=== PATIENT | female | born 1960 | race American Indian/Alaskan Native ===

== ENCOUNTER 2017-04-14 07:12 | Inpatient (IN) | payer MEDICARE, MEDICAID ==
[2017-03-18 09:55] VITALS: BMI 38.7
[2017-04-14] MEDS ORDERED: Bupivacaine Liposomal Inj 20 ml INFIL ONE (08:06)
--- NOTE | 2017-04-14 08:10 | CP.PCM.HP ---
History of Present Illness - History of Present Illness History of Present Illness: 56F with left knee TKR approx 3 years ago with continued pain and failed TKR for revision TKR. Patient with hx DVT BLE many years ago, before open heart surgery. Has prosthetic mitral valve and AICD. Medical clearance and cardio clearance Dr. Gonzalez on chart. Labs on chart, reviewed. No recent cough or cold, had recent UTI per lumber straightener, treated with antibiotics. No dysuria/frequency, PAT u/a neg Present on Admission - Present on Admission Any Indicators Present on Admission: Yes History of DVT/PE: Yes Review of Systems - Review of Systems All systems: reviewed and no additional remarkable complaints except - Musculoskeletal Musculoskeletal: As Per HPI Past Patient History - Past Medical History & Family History Past Medical History?: Yes - Past Social History Smoking Status: Never Smoked - CARDIAC Hx Cardiac Disorders: Yes (MVR 2010) Hx Cardia Arrhythmia: Yes Hx Congestive Heart Failure: Yes (systolic cardiomyopathy with AICD/ppm in 2012) Hx Heart Attack: Yes Hx Hypercholesterolemia: Yes Hx Hypertension: Yes Hx Internal Defibrillator: Yes Hx Mitral Valve Prolapse: Yes Hx Pacemaker: Yes - PULMONARY Hx Respiratory Disorders: Yes Hx Asthma: Yes - NEUROLOGICAL Hx Neurological Disorder: No - HEENT Hx HEENT Problems: No - RENAL Hx Chronic Kidney Disease: No - ENDOCRINE/METABOLIC Hx Endocrine Disorders: No - HEMATOLOGICAL/ONCOLOGICAL Hx Blood Disorders: No - INTEGUMENTARY Hx Dermatological Problems: Yes Hx Psoriasis: Yes - MUSCULOSKELETAL/RHEUMATOLOGICAL Hx Musculoskeletal Disorders: Yes Hx Arthritis: Yes Hx Back Pain: Yes Hx Falls: No Hx Osteoporosis: Yes - GASTROINTESTINAL Hx Gastrointestinal Disorders: Yes (CONSTIPATION) Hx Gastritis: Yes - GENITOURINARY/GYNECOLOGICAL Hx Genitourinary Disorders: No - PSYCHIATRIC Hx Psychophysiologic Disorder: No Hx Substance Use: No - SURGICAL HISTORY Hx Surgeries: Yes Hx Arthroscopy: Yes Hx Cardiac Catheterization: Yes Hx Cholecystectomy: Yes Hx Herniorrhaphy: Yes Hx Hysterectomy: Yes Hx Joint Replacement: Yes (BILAT) Hx Orthopedic Surgery: Yes Hx Valve Replacement: Yes (juana pig valve) - ANESTHESIA Hx Anesthesia: Yes Hx Anesthesia Reactions: No Hx Malignant Hyperthermia: No Has any member of the family had a problem w/ anesthesia?: No Meds Allergies/Adverse Reactions: Allergies Allergy/AdvReac Type Severity Reaction Status Date / Time ibuprofen Allergy Intermediate URTICARIA Verified 03/18/17 09:54 latex Allergy Intermediate URTICARIA Verified 03/18/17 09:54 shellfish derived Allergy Intermediate URTICARIA Verified 03/18/17 09:55 Physical Exam - Constitutional Appears: Well, No Acute Distress - Back Exam Additional comments: LLE: +ROM ankle/toes, sensation intact, calves soft NT neg homans, incision well healed, skin intact, no erythema or joint effusion - Neurological Exam Neurological exam: Alert, Oriented x3 - Psychiatric Exam Psychiatric exam: Normal Affect, Normal Mood - Skin Skin Exam: Dry, Intact, Normal Color, Warm Additional comments: no clinical suspicion of infection Results - Labs Result Diagrams: 04/15/17 07:18 04/15/17 07:18 Assessment & Plan (1) Failed total knee replacement Assessment and Plan: NPO for revision TKR Status: Acute (2) HTN (hypertension) Assessment and Plan: cont home meds, cardiology consult for post op mgmt Status: Chronic Priority: Medium
[2017-04-14] MEDS ORDERED: ceFAZolin IV 2 gm in Dextrose 1 GM/50 ML BAG IVPB ONE (10:17)
[2017-04-14] MEDS ORDERED: Lactated Ringer's 1,000 ML IV ONE ×2 (10:20→12:14)
[2017-04-14] MEDS ORDERED: Midazolam 2 MG/2 ML VIAL ONE (10:22)
[2017-04-14] MEDS ORDERED: Propofol 10 mg/ml Inj (20 ML) ONE (10:24)
[2017-04-14] MEDS ORDERED: Succinylcholine Chloride 20 mg/ml Syr (5 ml) IV ONE (10:24)
[2017-04-14] MEDS ORDERED: ceFAZolin IV 1 gm in Dextrose 1 GM/50 ML BAG IVPB ONE (10:40)
[2017-04-14] MEDS ORDERED: Vancomycin 1 g Inj ONE ×2 (10:41)
[2017-04-14] MEDS: Bacitracin 150,000 UNIT in Sodium Chloride 0.9% Irrig 3,000 ML IR SCH ×2 (11:55→12:45)
[2017-04-14] MEDS ORDERED: Neostigmine Methylsulfate 3mg/3ml Syringe IV ONE (13:18)
[2017-04-14] MEDS ORDERED: Fluticasone-Salmeterol 250-50mcg Diskus IH PRN (14:41)
--- NOTE | 2017-04-14 14:45 | PCM.SURG1 ---
Surgeon's Initial Post Op Note - Surgeon's Notes Surgeon: Galileo Santos MD Adventure Guide: Pietro Araya PA-C Type of Anesthesia: General Endo Anesthesia Administered By: Dr. Otto Pre-Operative Diagnosis: Left failed TKR Operative Findings: same. tourniquet@ 130 min @ 300mmHg Post-Operative Diagnosis: smae Operation Performed: Left revision total knee replacement Specimen/Specimens Removed: bone/implants Estimated Blood Loss: EBL {In ML}: 300 Blood Products Given: N/A Drains Used: Hemovac Post-Op Condition: Fair Date of Surgery/Procedure: 04/14/17 Time of Surgery/Procedure: 14:45
[2017-04-14] MEDS ORDERED: Dexamethasone 4 mg/1 ml IVP PRN (15:01)
--- NOTE | 2017-04-14 15:02 | OP ---
PROCEDURE DATE: 04/14/2017 PREOPERATIVE DIAGNOSIS: Failed left total knee replacement. POSTOPERATIVE DIAGNOSIS: Failed left total knee replacement. PROCEDURE: Revision left total knee replacement. SURGEON: Hayder Santos MD. OCCUPATIONAL SAFETY AND HEALTH MANAGER: Dr. Santos was assisted by Pallavi Araya and the third year medical student. Quiana was scrubbed and present throughout the case and helped in patient positioning, retraction throughou t the case, removal of the implants as well as wound closure. ANESTHESIA: General. COMPLICATIONS: None. ESTIMATED BLOOD LOSS: 300 mL. IMPLANT: A Biomet SSK total knee. INDICATIONS FOR PROCEDURE: This is a 56-year-old female who approximately 3 years ago underwent a le ft total knee replacement. Postoperatively, patient complained of chronic knee pain and instability. On clinical examination, the patient was noted to have a significant varus and valgus laxity consis tent with an incompetent MCL and LCL, global tenderness to palpation as well as a small effusion. On preoperative workup, including blood work as well as WBC ____ and bone scan was not consistent with any infection. Recommendations at that point were for a left revision total knee replacement. The r isks, benefits, and alternatives of the procedure were discussed with the patient including the possi bility of an infection, and informed consent was obtained. OPERATIVE PROCEDURE: After the surgical site was found and verified in preoperative holding area, th e patient was taken to the operating room and placed supine on the operating table. After administra tion of general anesthesia, patient received 3 grams of Ancef IV. A Anderson catheter was inserted. A tourniquet was placed about the left thigh. Care was taken to make sure all bony prominences and ner ves were well padded and protected. A Venodyne boot was placed on the nonoperative extremity and the left lower extremity was prepped and draped in usual sterile fashion. The tourniquet was inflated a t 300 mmHg and the previous incision was reincised. A medial parapatellar arthrotomy was performed, and at this point some fluid was noted in the knee joint and this was aspirated and sent for a stat G jerome stain. Culture swabs were also taken for aerobic, anaerobic, fungal and AFB. At this point, usi ng various osteotomes, the femoral and tibial components were removed. The patellar component was ev aluated; no gross wear was appreciated, no evidence of any loosening was appreciated, so the previous ly resurfaced patella was left intact. Next, care was taken to remove any excess cement in the knee joint. Next, the knee joint was pulse lavaged to remove any debris. At this point, our attention wa s directed to the femur. The medullary canal of the femur was reamed to allow for a 16 mm x 120 stem and the distal femoral cut block was placed and our distal femoral resection was performed. Similar ly, the 4-in-1 cut block was placed for a constrained component and then our anterior and posterior c uts were performed. Finally, the box cut was performed on the distal femur. Satisfied, our attentio n was directed to the tibia. Again, the medullary canal of the tibia was reamed sequentially to allo w for 14 x 120 stem. The intramedullary tibial cutting block was then pinned into place and our tibi al resection was performed. At this point, being careful to maintain the correct rotation, the medul anny canal of the proximal femur was reamed. At this point, with a trial tibia, trial femur, and a t rial bearing in place, the knee was taken through a range of motion and it was noted to be stable thr oughout its range of motion and well balanced. The trial components were removed and the knee joint was once again pulse lavaged with antibiotic saline solution. Please note that intraoperative frozen sections were done, first from the trochlea as well as from underneath the femoral component. The f rozen section, as per the pathologist, showed no WBCs or organisms per high-power field. Gram stain showed no organisms and 2-7 WBCs in the white count. Satisfied that these results were not consisten t with infection, the procedure proceeded. Once the knee joint had been pulse lavaged, the actual ti bial and femoral components were cemented into place. Care was taken to remove any excess cement. O nce the cement had hardened, the knee joint was inspected for any debris and pulse lavaged. At this p oint, the actual bearing was then inserted and locked into place with a cross pin. The tourniquet wa s deflated and any obvious bleeding was cauterized. A medium Hemovac drain was inserted and our arth rotomy was closed using #1 Vicryl suture. The subcutaneous tissue was closed using 0 Vicryl and 2-0 Vicryl suture, and the skin was closed using mecca. Sterile dressing was applied. A wound VAC was applied and a dressing was placed. The patient was awakened and taken to recovery room in stable an d satisfactory condition. Hayder Santos MD cc: [id number] TT: 04/14/2017 15:01:57 sudhir
[2017-04-14 15:15] LABS: HEMATOCRIT 33.7 % (34.0-47.0)
[2017-04-14] MEDS: HYDROmorphone 0.5 mg/0.5 ml ISec IVP PRN ×3 (15:22→20:48)
--- NOTE | 2017-04-14 15:51 | RAD ---
Indication: Status post revision TKR Comparison: None available Two views, left knee Findings: The patient is status post left knee total arthroplasty. Alignment appears satisfactory. Soft tissue swelling, suprapatellar joint effusion, subcutaneous emphysema, drainage catheter, and surgical mecca compatible with recent postoperative history Impression: Status post left arthroplasty as above.
[2017-04-14] MEDS ORDERED: Bupivacaine HCl 0.25% PF (10 ml) Inj ONE (16:26)
[2017-04-14] MEDS ORDERED: Bupivacaine 0.5% Inj(30mL) ONE (16:27)
--- NOTE | 2017-04-14 18:52 | CP.PCM.CON ---
History of Present Illness - History of Present Illness History of Present Illness: I was asked to see patient by Dr. Santos. Patient is a 56 year old female with a history of valvular cardiomyopathy, s/p MV repair, PPM, HTN who is s/p L total knee replacement. Patient needed revision of a previous knee surgery. The patient denies current chest pain or dyspnea Review of Systems - Constitutional Constitutional: absent: As Per HPI, Anorexia, Chills, Daytime Sleepiness, Excessive Sweating, Fatigue, Fever, Frequent Falls, Headache, Increased Appetite , Lethargy, Malaise, Night Sweats, Snoring, Sleep Apnea, Weight Gain, Weight Loss, Weakness, Other - EENT Eyes: absent: As Per HPI, Blind Spots, Blurred Vision, Change in Vision, Decreased Night Vision, Diplopia, Discharge, Dry Eye, Exophthalmos, Floaters, Irritation, Itchy Eyes, Loss of Peripheral Vision, Pain, Photophobia, Requires Corrective Lenses, Sees Flashes, Spots in Vision, Tunnel Vision, Other Visual Disturbances, Loss of Vision, Other Ears: absent: As Per HPI, Decreased Hearing, Ear Discharge, Ear Pain, Tinnitus, Abnormal Hearing, Disequilibrium, Dizziness, Other Nose/Mouth/Throat: absent: As Per HPI, Epistaxis, Nasal Congestion, Nasal Discharge, Nasal Obstruction, Nasal Trauma, Nose Pain, Post Nasal Drip, Sinus Pain, Sinus Pressure, Bleeding Gums, Change in Voice, Dental Pain, Dry Mouth, Dysphagia, Halitosis, Hoarsness, Lip Swelling, Mouth Lesions, Mouth Pain, Odynophagia, Sore Throat, Throat Swelling, Tongue Swelling, Facial Pain, Neck Pain, Neck Mass, Other - Cardiovascular Cardiovascular: absent: As Per HPI, Acrocyanosis, Chest Pain, Chest Pain at Rest , Chest Pain with Activity, Claudication, Diaphoresis, Dyspnea, Dyspnea on Exertion, Edema, Irregular Heart Rhythm, Pain Radiating to Arm/Neck/Jaw, Leg Edema, Leg Ulcers, Lightheadedness, Orthopnea, Palpitations, Paroxysmal Nocturnal Dyspnea, Pedal Edema, Radiating Pain, Rapid Heart Rate, Slow Heart Rate, Syncope, Other - Respiratory Respiratory: absent: As Per HPI, Cough, Dyspnea, Hemoptysis, Dyspnea on Exertion , Wheezing, Snoring, Stridor, Pain on Inspiration, Chest Congestion, Excessive Mucous Production, Change in Mucous Color, Pain with Coughing, Other - Gastrointestinal Gastrointestinal: absent: As Per HPI, Abdominal Pain, Belching, Bloating, Change in Bowel Habits, Change in Stool Character, Coffee Ground Emesis, Constipation, Cramping, Diarrhea, Dyspepsia, Dysphagia, Early Satiety, Excessive Flatus, Fecal Incontinence, Heartburn, Hematemesis, Hematochezia, Loose Stools, Melena, Nausea, Odynophagia, Temesmus, Vomiting, Other - Genitourinary Genitourinary: absent: As Per HPI, Change in Urinary Stream, Difficulty Urinating, Dysuria, Flank Pain, Hematuria, Pyuria, Nocturia, Urinary Incontinence, Urinary Frequency, Urinary Hesitance, Urinary Urgency, Voiding Freq/Small Amts, Freq UTI, Hx Renal/Bladder Calculi, Hx /Renal Surgery, Bladder Distension, Other - Musculoskeletal Additional comments: s/p knee replacement - Integumentary Integumentary: absent: As Per HPI, Acne, Alopecia, Bleeding Lesions, Change in Hair, Change in Nails, Change in Pigmentation, Changing Lesions, Dry Skin, Erythema, Furuncle, Hirsutism, Lesions, New Lesions, Non-Healing Lesions, Photosensitivity, Pruritus, Rash, Skin Pain, Skin Ulcer, Sores, Striae, Swelling , Unusual Bruising, Wounds, Jaundice, Other - Psychiatric Psychiatric: absent: As Per HPI, Abnormal Sleep Pattern, Anhedonia, Anxiety, Auditory Hallucinations, Behavioral Changes, Change in Appetite, Change in Libido, Confusion, Depression, Difficulty Concentrating, Hallucinations, Homicidal Ideation, Hopelessness, Irritability, Memory Loss, Mood Swings, Panic Attacks, Paranoia, Suicidal Ideation, Visual Hallucinations, Tactile Hallucinations, Other - Endocrine Endocrine: absent: As Per HPI, Change in Body Appearance, Change in Libido, Cold Intolorance, Deepening of Voice, Excessive Sweating, Fatigue, Flushing, Heat Intolorance, Increase in Ring/Shoe/Hat Size, Palpitations, Polydipsia, Polyphagia, Polyuria, Other - Hematologic/Lymphatic Hematologic: absent: As Per HPI, Easy Bleeding, Easy Bruising, Lymphadenopathy, Other Past Patient History - Past Medical History & Family History Past Medical History?: Yes - Past Social History Smoking Status: Never Smoked - CARDIAC Hx Cardiac Disorders: Yes (MVR 2010) Hx Cardia Arrhythmia: Yes Hx Congestive Heart Failure: Yes (systolic cardiomyopathy with AICD/ppm in 2013) Hx Heart Attack: Yes Hx Hypercholesterolemia: Yes Hx Hypertension: Yes Hx Internal Defibrillator: Yes Hx Mitral Valve Prolapse: Yes Hx Pacemaker: Yes - PULMONARY Hx Respiratory Disorders: Yes Hx Asthma: Yes - NEUROLOGICAL Hx Neurological Disorder: No - HEENT Hx HEENT Problems: No - RENAL Hx Chronic Kidney Disease: No - ENDOCRINE/METABOLIC Hx Endocrine Disorders: No - HEMATOLOGICAL/ONCOLOGICAL Hx Blood Disorders: No - INTEGUMENTARY Hx Dermatological Problems: Yes Hx Psoriasis: Yes - MUSCULOSKELETAL/RHEUMATOLOGICAL Hx Musculoskeletal Disorders: Yes Hx Arthritis: Yes Hx Back Pain: Yes Hx Falls: No Hx Osteoporosis: Yes - GASTROINTESTINAL Hx Gastrointestinal Disorders: Yes (CONSTIPATION) Hx Gastritis: Yes - GENITOURINARY/GYNECOLOGICAL Hx Genitourinary Disorders: No - PSYCHIATRIC Hx Psychophysiologic Disorder: No Hx Substance Use: No - SURGICAL HISTORY Hx Surgeries: Yes Hx Arthroscopy: Yes Hx Cardiac Catheterization: Yes Hx Cholecystectomy: Yes Hx Herniorrhaphy: Yes Hx Hysterectomy: Yes Hx Joint Replacement: Yes (BILAT) Hx Orthopedic Surgery: Yes Hx Valve Replacement: Yes (juana pig valve) - ANESTHESIA Hx Anesthesia: Yes Hx Anesthesia Reactions: No Hx Malignant Hyperthermia: No Has any member of the family had a problem w/ anesthesia?: No Meds Allergies/Adverse Reactions: Allergies Allergy/AdvReac Type Severity Reaction Status Date / Time ibuprofen Allergy Intermediate URTICARIA Verified 03/18/17 09:54 latex Allergy Intermediate URTICARIA Verified 03/18/17 09:54 shellfish derived Allergy Intermediate URTICARIA Verified 03/18/17 09:55 - Medications Medications: Current Medications Acetaminophen (Tylenol 325mg Tab) 650 mg PO Q4 PRN PRN Reason: Fever 101 degrees fahrenheit Aspirin (Ecotrin) 81 mg PO DAILY JT Docusate Sodium (Colace) 100 mg PO BID JT Ezetimibe (Zetia) 10 mg PO DAILY JT Enoxaparin Sodium (Lovenox) 30 mg SC Q12H [facility] Home Med (Fluticasone/Vilanterol [Breo Ellipta 200-25 Mcg Inh]) 1 each IH DAILY [facility] Home Med (Linaclotide [Linzess]) 290 mcg PO DAILY JT Hydromorphone HCl (Dilaudid) 0.5 mg IVP Q4H PRN PRN Reason: Pain, severe (8-10) Cefazolin Sodium/Dextrose (Ancef Iv 2 Gm Duplex) 2 gm in 100 mls @ 100 mls/hr IVPB Q8H JT Sodium Chloride (Sodium Chloride 0.9%) 1,000 mls @ 80 mls/hr IV .[id number] JT Losartan Potassium (Cozaar) 100 mg PO DAILY JT Nebivolol (Bystolic) 20 mg PO DAILY JT Ondansetron HCl (Zofran Inj) 4 mg IVP ONCE PRN PRN Reason: Nausea/Vomiting Oxycodone/Acetaminophen (Percocet 5/325 Mg Tab) 2 tab PO Q4H PRN PRN Reason: Pain, moderate (4-7) Stop: 04/17/17 14:36 Rosuvastatin Calcium (Crestor) 5 mg PO DAILY JT Fluticasone/Salmeterol (Advair Diskus 250/50) puff IH PRN PRN PRN Reason: Shortness of Breath Physical Exam - Constitutional Appears: Non-toxic - Head Exam Head Exam: NORMAL INSPECTION - Eye Exam Eye Exam: Normal appearance - ENT Exam ENT Exam: Mucous Membranes Moist - Neck Exam Neck exam: Positive for: Full Rom - Respiratory Exam Respiratory Exam: Decreased Breath Sounds - Cardiovascular Exam Cardiovascular Exam: REGULAR RHYTHM - GI/Abdominal Exam GI & Abdominal Exam: Normal Bowel Sounds - Extremities Exam Extremities exam: Positive for: pedal pulses present. Negative for: pedal edema Additional comments: L knee c/d/i - Back Exam Back exam: NORMAL INSPECTION - Neurological Exam Neurological exam: Alert, Oriented x3 - Psychiatric Exam Psychiatric exam: Normal Affect - Skin Skin Exam: Normal Color Results - Vital Signs Recent Vital Signs: Last Vital Signs Temp 97.4 F L 04/14/17 18:41 Pulse 53 L 04/14/17 18:41 Resp 20 04/14/17 18:41 BP 156/71 H 04/14/17 18:41 Pulse Ox 100 04/14/17 18:41 - Labs Result Diagrams: 04/14/17 15:00 Labs: Laboratory Results - last 24 hr 04/14/17 04/14/17 04/14/17 08:32 08:45 15:00 Hgb 11.0 Hct 33.7 L POC Glucose (mg/dL) 98 Blood Type O POSITIVE Antibody Screen Negative - EKG Data EKG Interpreted by: Myself Assessment & Plan (1) Mitral valve disorder Assessment and Plan: s/p MV repair. Most recent echocardiogram reveals intact repair. No current heart failure. recommend medical therapy Status: Acute (2) HTN (hypertension) Assessment and Plan: will adjust BP therapy Status: Chronic Priority: Medium
[2017-04-14] MEDS ORDERED: ceFAZolin IV 2 gm in Dextrose 2 GM/100 ML BAG IVPB SCH (19:00)
[2017-04-14] MEDS: Sodium Chloride 0.9% 1,000 ML IV SCH (20:45)
[2017-04-15] MEDS: HYDROmorphone 0.5 mg/0.5 ml ISec IVP PRN ×5 (01:27→20:47)
[2017-04-15] MEDS: Sodium Chloride 0.9% 1,000 ML IV SCH ×2 (03:15→17:47)
[2017-04-15 07:26] LABS: HEMATOCRIT 32.2 % (34.0-47.0); MEAN CELL VOLUME 88.9 fL (81.0-99.0); MEAN CORPUSCULAR HEMOGLOBIN 29.4 pg (27.0-31.0); MEAN PLATELET VOLUME 10.5 fL (7.2-11.7); RED CELL DISTRIBUTION WIDTH 14.4 % (11.5-14.5)
[2017-04-15 07:29] LABS: WHITE BLOOD COUNT 9.7 K/uL (4.8-10.8)
[2017-04-15 07:36] LABS: CHLORIDE 100 mmol/L (98-107); POTASSIUM 4.7 mmol/L (3.6-5.2); SODIUM 137 mmol/L (132-148)
[2017-04-15 07:38] LABS: GFR AFRICAN-AMERICAN > 60
[2017-04-15 07:39] LABS: BLOOD UREA NITROGEN 12 mg/dL (7-17); CALCIUM 8.4 mg/dl (8.6-10.4); CARBON DIOXIDE 29 mmol/L (22-30); GLUCOSE,RANDOM 134 mg/dL (65-105)
--- NOTE | 2017-04-15 08:20 | CP.PCM.PN ---
Subjective - Date & Time of Evaluation Date of Evaluation: 04/15/17 Time of Evaluation: 08:18 - Subjective Subjective: Pt awake, alert. Comfortable. VSS L knee: dressing clean and intact NVI distally Hemovac no drainage (off suction) Hg 10.6 POD 1 cont Hemovac suction on PT, CPM today Lovenox D/c planning Objective - Vital Signs/Intake and Output Vital Signs (last 24 hours): Temp Pulse Resp BP Pulse Ox 97.6 F 62 20 142/67 100 04/14/17 23:00 04/14/17 23:00 04/14/17 23:00 04/15/17 05:31 04/14/17 23:00 Intake and Output: 04/15/17 04/15/17 06:59 18:59 Intake Total 1640 Output Total 800 Balance 840 - Medications Medications: Current Medications Acetaminophen (Tylenol 325mg Tab) 650 mg PO Q4 PRN PRN Reason: Fever 101 degrees fahrenheit Aspirin (Ecotrin) 81 mg PO DAILY [facility] Docusate Sodium (Colace) 100 mg PO BID [facility] Last Admin: 04/14/17 18:00 Dose: Not Given Ezetimibe (Zetia) 10 mg PO DAILY [facility] Enoxaparin Sodium (Lovenox) 30 mg SC Q12H [facility] Home Med (Linaclotide [Linzess]) 290 mcg PO DAILY [facility] Hydromorphone HCl (Dilaudid) 0.5 mg IVP Q4H PRN PRN Reason: Pain, severe (8-10) Last Admin: 04/15/17 05:32 Dose: 0.5 mg Sodium Chloride (Sodium Chloride 0.9%) 1,000 mls @ 80 mls/hr IV .[id number] [facility] Last Admin: 04/15/17 03:15 Dose: Not Given Cefazolin Sodium 2 gm/ (Dextrose) 50 mls @ 100 mls/hr IVPB Q8H [facility] Last Admin: 04/15/17 03:31 Dose: 100 mls/hr Losartan Potassium (Cozaar) 100 mg PO DAILY [facility] Nebivolol (Bystolic) 20 mg PO DAILY [facility] Ondansetron HCl (Zofran Inj) 4 mg IVP ONCE PRN PRN Reason: Nausea/Vomiting Last Admin: 04/14/17 20:59 Dose: 4 mg Oxycodone/Acetaminophen (Percocet 5/325 Mg Tab) 2 tab PO Q4H PRN PRN Reason: Pain, moderate (4-7) Stop: 04/17/17 14:36 Rosuvastatin Calcium (Crestor) 5 mg PO DAILY JT - Labs Labs: 04/15/17 07:18 04/15/17 07:18
--- NOTE | 2017-04-15 09:38 | RAD ---
PROCEDURE: Radiographs of the left tibia and fibula. HISTORY: s/p TKR, long stem COMPARISON: None available. TECHNIQUE: Frontal and lateral views obtained. FINDINGS: BONES: Status post total knee replacement with a long tibial stem. No osseous fracture. Surgical drain. Anterior cutaneous mecca. JOINT SPACES: Unremarkable. OTHER FINDINGS: None. IMPRESSION: Status post left total knee replacement.
[2017-04-15] MEDS ORDERED: Home Med 1 UNIT (Linaclotide [Linzess] 290 MCG) PO SCH (10:00)
[2017-04-15] MEDS ORDERED: Home Med 1 UNIT (Fluticasone/Vilanterol [Breo Ellipta 200-25 Mcg Inh] 1 EACH) IH SCH (10:00)
[2017-04-15] MEDS: Enoxaparin 30 mg Syringe SC SCH (13:55)
[2017-04-15 16:30] VITALS: RESP 20
[2017-04-16] MEDS: HYDROmorphone 0.5 mg/0.5 ml ISec IVP PRN ×3 (00:36→10:21)
[2017-04-16] MEDS: Sodium Chloride 0.9% 1,000 ML IV SCH (00:38)
[2017-04-16] MEDS: Enoxaparin 30 mg Syringe SC SCH ×2 (02:19→14:03)
[2017-04-16 08:24] LABS: HEMATOCRIT 28.3 % (34.0-47.0); MEAN CELL VOLUME 89.4 fL (81.0-99.0); MEAN CORPUSCULAR HEMOGLOBIN 29.2 pg (27.0-31.0); MEAN CORPUSCULAR HGB CONC 32.7 g/dL (33.0-37.0); MEAN PLATELET VOLUME 10.5 fL (7.2-11.7); RED CELL DISTRIBUTION WIDTH 14.5 % (11.5-14.5); WHITE BLOOD COUNT 7.9 K/uL (4.8-10.8)
[2017-04-16 08:40] LABS: CHLORIDE 101 mmol/L (98-107); SODIUM 137 mmol/L (132-148)
[2017-04-16 08:41] LABS: POTASSIUM 4.2 mmol/L (3.6-5.2)
[2017-04-16 08:43] LABS: BLOOD UREA NITROGEN 10 mg/dL (7-17); CARBON DIOXIDE 28 mmol/L (22-30); GFR AFRICAN-AMERICAN > 60
[2017-04-16 08:44] LABS: GLUCOSE,RANDOM 109 mg/dL (65-105)
--- NOTE | 2017-04-16 08:55 | CP.PCM.PN ---
Subjective - Date & Time of Evaluation Date of Evaluation: 04/16/17 Time of Evaluation: 08:44 - Subjective Subjective: Patient states pain is well controlled. Denies CP/SOB/dizziness. Denies numbness /tingling/nausea/vomiting Objective - Vital Signs/Intake and Output Vital Signs (last 24 hours): Temp Pulse Resp BP Pulse Ox 99.1 F 83 20 109/72 96 04/16/17 08:33 04/16/17 08:33 04/16/17 08:33 04/16/17 08:33 04/16/17 08:33 Intake and Output: 04/16/17 04/16/17 06:59 18:59 Intake Total 880 Output Total 0 Balance 880 - Medications Medications: Current Medications Acetaminophen (Tylenol 325mg Tab) 650 mg PO Q4 PRN PRN Reason: Fever 101 degrees fahrenheit Aspirin (Ecotrin) 81 mg PO DAILY [facility] Last Admin: 04/15/17 09:53 Dose: 81 mg Docusate Sodium (Colace) 100 mg PO BID [facility] Last Admin: 04/15/17 17:46 Dose: 100 mg Ezetimibe (Zetia) 10 mg PO DAILY [facility] Last Admin: 04/15/17 09:53 Dose: 10 mg Enoxaparin Sodium (Lovenox) 30 mg SC Q12H [facility] Last Admin: 04/16/17 02:19 Dose: 30 mg Home Med (Linaclotide [Linzess]) 290 mcg PO DAILY [facility] Hydromorphone HCl (Dilaudid) 0.5 mg IVP Q4H PRN PRN Reason: Pain, severe (8-10) Last Admin: 04/16/17 04:46 Dose: 0.5 mg Sodium Chloride (Sodium Chloride 0.9%) 1,000 mls @ 80 mls/hr IV .[id number] [facility] Last Admin: 04/16/17 00:38 Dose: 80 mls/hr Cefazolin Sodium 2 gm/ (Dextrose) 50 mls @ 100 mls/hr IVPB Q8H [facility] Last Admin: 04/16/17 02:20 Dose: 100 mls/hr Losartan Potassium (Cozaar) 100 mg PO DAILY [facility] Last Admin: 04/15/17 09:53 Dose: 100 mg Nebivolol (Bystolic) 20 mg PO DAILY [facility] Last Admin: 04/15/17 09:53 Dose: 20 mg Ondansetron HCl (Zofran Inj) 4 mg IVP ONCE PRN PRN Reason: Nausea/Vomiting Last Admin: 04/14/17 20:59 Dose: 4 mg Oxycodone/Acetaminophen (Percocet 5/325 Mg Tab) 2 tab PO Q4H PRN PRN Reason: Pain, moderate (4-7) Stop: 04/17/17 14:36 Rosuvastatin Calcium (Crestor) 5 mg PO DAILY JT - Labs Labs: 04/16/17 08:16 04/16/17 08:16 - Constitutional Appears: Well, No Acute Distress - Extremities Exam Additional comments: +ROM ankle/toes, sensation intact, +DP/PT pulses, calves soft NT neg homans incision intact, small amount sang drainage, wil wound vac reapplied no erythema - Psychiatric Exam Psychiatric exam: Normal Affect, Normal Mood - Skin Skin Exam: Normal Color, Warm Assessment and Plan (1) Failed total knee replacement Assessment & Plan: POD#2 s/p revision TKR -cultures prelim neg -VTE proph -PT/OT -d/c planning to rehab -labs reviewed -d/w Dr. Santos, agrees with above Status: Acute (2) HTN (hypertension) Assessment & Plan: cont home meds Status: Chronic
[2017-04-16] MEDS: Oxycodone/Acetaminophen 5/325 mg Tab PO PRN ×2 (14:03→22:07)
[2017-04-17] MEDS: Enoxaparin 30 mg Syringe SC SCH ×2 (02:23→15:01)
[2017-04-17 07:21] LABS: HEMATOCRIT 27.3 % (34.0-47.0); MEAN CELL VOLUME 89.7 fL (81.0-99.0); MEAN CORPUSCULAR HEMOGLOBIN 29.2 pg (27.0-31.0); MEAN CORPUSCULAR HGB CONC 32.6 g/dL (33.0-37.0); MEAN PLATELET VOLUME 10.2 fL (7.2-11.7); RED CELL DISTRIBUTION WIDTH 14.8 % (11.5-14.5); WHITE BLOOD COUNT 7.9 K/uL (4.8-10.8)
[2017-04-17 07:50] LABS: CHLORIDE 102 mmol/L (98-107); POTASSIUM 4.3 mmol/L (3.6-5.2); SODIUM 137 mmol/L (132-148)
[2017-04-17 07:53] LABS: BLOOD UREA NITROGEN 10 mg/dL (7-17); CALCIUM 8.3 mg/dl (8.6-10.4); CARBON DIOXIDE 31 mmol/L (22-30); GFR AFRICAN-AMERICAN > 60; GLUCOSE,RANDOM 117 mg/dL (65-105)
[2017-04-17 08:09] VITALS: BP 118/79; PULSE 73; TEMP 99.7; O2SAT 97
--- NOTE | 2017-04-17 10:37 | CP.PCM.PN ---
Subjective - Date & Time of Evaluation Date of Evaluation: 04/17/17 Time of Evaluation: 09:00 - Subjective Subjective: Patient states that pain in knee in improving. Denies CP/SOB/dizziness/palp/n/v/ numbness/tingling. Objective - Vital Signs/Intake and Output Vital Signs (last 24 hours): Temp Pulse Resp BP Pulse Ox 99.7 F H 73 20 118/79 97 04/17/17 07:35 04/17/17 07:35 04/17/17 07:35 04/17/17 07:35 04/17/17 07:35 Intake and Output: 04/17/17 04/17/17 06:59 18:59 Intake Total 290 Balance 290 - Medications Medications: Current Medications Acetaminophen (Tylenol 325mg Tab) 650 mg PO Q4 PRN PRN Reason: Fever 101 degrees fahrenheit Aspirin (Ecotrin) 81 mg PO DAILY [facility] Last Admin: 04/17/17 09:43 Dose: 81 mg Docusate Sodium (Colace) 100 mg PO BID [facility] Last Admin: 04/17/17 09:43 Dose: 100 mg Ezetimibe (Zetia) 10 mg PO DAILY [facility] Last Admin: 04/17/17 09:43 Dose: 10 mg Enoxaparin Sodium (Lovenox) 30 mg SC Q12H [facility] Last Admin: 04/17/17 02:23 Dose: 30 mg Ferrous Sulfate (Feosol) 325 mg PO DAILY [facility] Last Admin: 04/17/17 09:43 Dose: 325 mg Home Med (Linaclotide [Linzess]) 290 mcg PO DAILY [facility] Hydromorphone HCl (Dilaudid) 0.5 mg IVP Q4H PRN PRN Reason: Pain, severe (8-10) Last Admin: 04/16/17 10:21 Dose: 0.5 mg Cefazolin Sodium 2 gm/ (Dextrose) 50 mls @ 100 mls/hr IVPB Q8H [facility] Last Admin: 04/17/17 02:23 Dose: 100 mls/hr Losartan Potassium (Cozaar) 100 mg PO DAILY [facility] Last Admin: 04/17/17 09:43 Dose: 100 mg Nebivolol (Bystolic) 20 mg PO DAILY [facility] Last Admin: 04/17/17 09:43 Dose: 20 mg Ondansetron HCl (Zofran Inj) 4 mg IVP ONCE PRN PRN Reason: Nausea/Vomiting Last Admin: 04/14/17 20:59 Dose: 4 mg Oxycodone/Acetaminophen (Percocet 5/325 Mg Tab) 2 tab PO Q4H PRN PRN Reason: Pain, moderate (4-7) Stop: 04/17/17 14:36 Last Admin: 04/16/17 22:07 Dose: 2 tab Rosuvastatin Calcium (Crestor) 5 mg PO DAILY [facility] Last Admin: 04/16/17 10:21 Dose: 5 mg - Labs Labs: 04/17/17 07:11 04/17/17 07:11 - Extremities Exam Additional comments: wound vac intact, functioning. Knee immob intact. +ROM ankle/toes, sensation intact, +DP/PT pulses. calves soft NT neg homans Assessment and Plan (1) Failed total knee replacement Assessment & Plan: POD# 3 s/p revision left TKR -d/c to rehab today -cont VTE proph -wound vac x7 days total -PT/OT/CPM -f/u Dr. Santos approx 10 days call for appointment -d/w Dr. Santos, agrees with above Status: Acute (2) HTN (hypertension) Assessment & Plan: cont home meds Status: Chronic
--- NOTE | 2017-04-17 11:39 | CP.PCM.PN ---
Subjective - Date & Time of Evaluation Date of Evaluation: 04/17/17 Time of Evaluation: 11:38 - Subjective Subjective: Agree with PA note. Ortho stable for D/c. cont NATHALY until Thursday. cont DVT prophylaxis f/u in office POD 14 Objective - Vital Signs/Intake and Output Vital Signs (last 24 hours): Temp Pulse Resp BP Pulse Ox 99.7 F H 73 20 118/79 97 04/17/17 07:35 04/17/17 07:35 04/17/17 07:35 04/17/17 07:35 04/17/17 07:35 Intake and Output: 04/17/17 04/17/17 06:59 18:59 Intake Total 290 Balance 290 - Medications Medications: Current Medications Acetaminophen (Tylenol 325mg Tab) 650 mg PO Q4 PRN PRN Reason: Fever 101 degrees fahrenheit Aspirin (Ecotrin) 81 mg PO DAILY [facility] Last Admin: 04/17/17 09:43 Dose: 81 mg Docusate Sodium (Colace) 100 mg PO BID [facility] Last Admin: 04/17/17 09:43 Dose: 100 mg Ezetimibe (Zetia) 10 mg PO DAILY [facility] Last Admin: 04/17/17 09:43 Dose: 10 mg Enoxaparin Sodium (Lovenox) 30 mg SC Q12H [facility] Last Admin: 04/17/17 02:23 Dose: 30 mg Ferrous Sulfate (Feosol) 325 mg PO DAILY [facility] Last Admin: 04/17/17 09:43 Dose: 325 mg Home Med (Linaclotide [Linzess]) 290 mcg PO DAILY [facility] Hydromorphone HCl (Dilaudid) 0.5 mg IVP Q4H PRN PRN Reason: Pain, severe (8-10) Last Admin: 04/16/17 10:21 Dose: 0.5 mg Cefazolin Sodium 2 gm/ (Dextrose) 50 mls @ 100 mls/hr IVPB Q8H [facility] Last Admin: 04/17/17 02:23 Dose: 100 mls/hr Losartan Potassium (Cozaar) 100 mg PO DAILY [facility] Last Admin: 04/17/17 09:43 Dose: 100 mg Nebivolol (Bystolic) 20 mg PO DAILY [facility] Last Admin: 04/17/17 09:43 Dose: 20 mg Ondansetron HCl (Zofran Inj) 4 mg IVP ONCE PRN PRN Reason: Nausea/Vomiting Last Admin: 04/14/17 20:59 Dose: 4 mg Oxycodone/Acetaminophen (Percocet 5/325 Mg Tab) 2 tab PO Q4H PRN PRN Reason: Pain, moderate (4-7) Stop: 04/17/17 14:36 Last Admin: 04/16/17 22:07 Dose: 2 tab Rosuvastatin Calcium (Crestor) 5 mg PO DAILY [facility] Last Admin: 04/16/17 10:21 Dose: 5 mg - Labs Labs: 04/17/17 07:11 04/17/17 07:11
--- NOTE | 2017-04-17 13:43 | CP.PCM.DIS ---
Provider - Provider Date of Admission: 04/14/17 07:12 Attending physician: Hayder Santos MD Consults: Dr. Saskia Gonzalez cardiology Time Spent in preparation of Discharge (in minutes): 5 Diagnosis - Discharge Diagnosis (1) Failed total knee replacement Status: Acute (2) HTN (hypertension) Status: Chronic Priority: Medium (3) Acute blood loss anemia Status: Acute Comment: hemodynamically stable and well tolerated, no transfusion per Dr. Santos Hospital Course - Lab Results Lab Results: Micro Results 04/14/17 11:24 Other: Please Indicate Gram Stain - Final 04/14/17 11:24 Other: Please Indicate Body Fluid Culture - Preliminary NO GROWTH AFTER 3 DAYS 04/14/17 11:44 Knee - Left Gram Stain - Final 04/14/17 11:44 Knee - Left Wound Culture - Preliminary No growth. 04/14/17 11:29 Knee - Left Gram Stain - Final 04/14/17 11:29 Knee - Left Wound Culture - Preliminary No growth. 04/14/17 11:32 Knee - Left Anaerobic Culture - Final NO ANAEROBES ISOLATED. 04/14/17 11:28 Other: Please Indicate Mycobacterial Culture - Preliminary 04/14/17 11:33 Knee - Left Fungal Culture - Preliminary Most Recent Lab Values WBC 7.9 K/uL (4.8-10.8) 04/17/17 07:11 RBC 3.04 Mil/uL (3.80-5.20) L 04/17/17 07:11 Hgb 8.9 g/dL (11.0-16.0) L 04/17/17 07:11 Hct 27.3 % (34.0-47.0) L 04/17/17 07:11 MCV 89.7 fL (81.0-99.0) 04/17/17 07:11 MCH 29.2 pg (27.0-31.0) 04/17/17 07:11 MCHC 32.6 g/dL (33.0-37.0) L 04/17/17 07:11 RDW 14.8 % (11.5-14.5) H 04/17/17 07:11 Plt Count 110 K/uL (130-400) L 04/17/17 07:11 MPV 10.2 fL (7.2-11.7) 04/17/17 07:11 Differential Comment 04/16/17 08:16 Sodium 137 mmol/L (132-148) 04/17/17 07:11 Potassium 4.3 mmol/L (3.6-5.2) 04/17/17 07:11 Chloride 102 mmol/L (98-107) 04/17/17 07:11 Carbon Dioxide 31 mmol/L (22-30) H 04/17/17 07:11 Anion Gap 8 (10-20) L 04/17/17 07:11 BUN 10 mg/dL (7-17) 04/17/17 07:11 Creatinine 1.0 MG/DL (0.7-1.2) 04/17/17 07:11 Est GFR ( Amer) > 60 04/17/17 07:11 Est GFR (Non-Af Amer) 57 04/17/17 07:11 POC Glucose (mg/dL) 98 mg/dL (65-110) 04/14/17 08:45 Random Glucose 117 mg/dL (65-105) H 04/17/17 07:11 Calcium 8.3 mg/dl (8.6-10.4) L 04/17/17 07:11 Blood Type O POSITIVE 04/14/17 08:32 Antibody Screen Negative 04/14/17 08:32 - Hospital Course Hospital Course: 56F with PMH: mitral valve disease, hx DVT, HTN, with failed left knee total knee replacement was indicated and elected for revision TKR. Postoperative imaging demonstrated acceptable position of prosthesis. Cardiology consultation was requested for post operative management. HTN controlled throughout admission. Patients post operative course was complicated by acute blood loss anemia, hemodynamically stable and well tolerated, no treatment needed. Patient tolerated PT/OT well. Patient received VTE prophylaxis in the form of lovenox 30mg SQ q12h and venodynes. [place] [facility] [place] medications as well as the lovenox. Patient was WBAT LLE, ambulating with walker, and given instructions for NATHALY dressing change on 04/21 and to f/u Dr. Santos next week. Discharge Exam - Head Exam Head Exam: NORMAL INSPECTION Discharge Plan - Follow Up Plan Condition: GOOD Disposition: REHAB FACILITY/REHAB UNIT Instructions: Heart Failure (DC), Heart Healthy Diet (DC), Pain Management After Surgery (DC), Joint Replacement Surgery (DC), Knee Replacement (DC) Referrals: Hayder Santos MD [Staff Provider] - 1 Week (Wound vac to left knee to be removed Saturday 04/21 and sterile dry dressing and tip to be applied to left knee knee immobilizer at night, remove during day WBAT LLE f/u Dr. Santos approx 10 days call for appointment)
[2017-04-17] MEDS: HYDROmorphone 0.5 mg/0.5 ml ISec IVP PRN (15:01)
== END 2017-04-17 15:30 | DRG 467 ==
LOC: C.9S 07:12 → C.6T 18:10
PROVIDERS: ADMIT Orthopaedic Surgery; ATTEND Orthopaedic Surgery
PROC: 0SPD0JZ Removal of Synthetic Substitute from Left Knee Joint, Open Approach (ICD-10-PCS; 2017-04-14)
PROC: 0SRD0J9 Replacement of Left Knee Joint with Synthetic Substitute, Cemented, Open Approach (ICD-10-PCS; principal; 2017-04-14 10:20)
DX: T84.023A Instability of internal left knee prosthesis, initial encounter (principal); I50.22 Chronic systolic (congestive) heart failure; I42.9 Cardiomyopathy, unspecified; I11.0 Hypertensive heart disease with heart failure; D62 Acute posthemorrhagic anemia; Y79.2 Prosthetic and other implants, materials and accessory orthopedic devices associated with adverse incidents; E78.00 Pure hypercholesterolemia, unspecified; G89.29 Other chronic pain; J45.909 Unspecified asthma, uncomplicated; M81.0 Age-related osteoporosis without current pathological fracture; Z86.718 Personal history of other venous thrombosis and embolism; Z95.0 Presence of cardiac pacemaker; Z95.2 Presence of prosthetic heart valve; I25.2 Old myocardial infarction